=== PATIENT | female | born 1955 | race Caucasian/White ===

== ENCOUNTER 2016-06-29 10:23 | Emergency (ER) | payer BC, OTHER ==
[2016-06-29 10:39] VITALS: RESP 16
--- NOTE | 2016-06-29 12:06 | EDPHY ---
H & P Smoking Status: Heavy smoker Time Seen by Provider: 06/29/16 11:50 HPI/ROS: HPI: 52-year-old female presents to emergency department with chief concern right wrist pain, swelling, deformity. Occurred at 9:55 a.m. when she fell off of a trash can she was standing on at work at [employer] with outstretched right hand. Did not incur other injury. Did not strike her head. No neck or back pain. No right shoulder, right elbow pain. No weakness, numbness, or tingling of the right upper extremity. Current daily smoker. ROS:10 point review of systems is negative other than as stated in HPI (Cherry Welch) Physical Exam: Vital signs reviewed by me General: Awake, alert, calm, cooperative. No acute distress. Head: Normalocephalic. Atraumatic. EENT: PERRLA. EOMI. Neck: Supple, nontender. No midline tenderness, full ROM. Respiratory: Breathing unlabored. CV: Chest nontender, atraumatic. Distal pulses 2+. Brisk cap refill all extremities. GI: Deferred Neuro: Alert. Oriented x 3. Sensation intact all extremities. Skin: Skin warm, dry, intact. No ecchymosis, abrasions, or lacerations. Extremities: No discomfort to palpation of the right shoulder, elbow. Full ROM. Deformity, swelling, pain right distal forearm. Decreased range of motion. Cap refill intact. Sensation intact. (Cherry Welch) Constitutional: Initial Vital Signs Temperature (C) 36.4 C 06/29/16 10:36 Heart Rate 74 06/29/16 10:36 Respiratory Rate 16 06/29/16 10:36 Blood Pressure 166/101 H 06/29/16 10:36 O2 Sat (%) 93 06/29/16 10:36 O2 Delivery Mode Room Air Allergies/Adverse Reactions: epinephrine Allergy (Verified 04/09/13 12:26) fentanyl Allergy (Verified 04/09/13 12:26) Home Medications: Medication Instructions Recorded Buprenorphine [Butrans] 04/09/13 Losartan-Hctz 100-25 mg Tab 04/09/13 Percocet 5/325 (RX) 04/09/13 oxyCODONE/APAP 5/325 [Percocet 1 - 2 tab PO Q6H PRN #20 tab 06/29/16 5/325 (*)] Medical Decision Making - Diagnostics Imaging Results: Imaging Impressions Wrist X-Ray 06/29/16 11:02 Impression: 1. Dorsally angulated Colles' fracture. 2. Wide pisiform triquetral joint. If there is concern for acute pisiform malalignment, then consider CT. Wrist X-Ray 06/29/16 13:10 Impression: Improved alignment, with persistent mild dorsal angulation. Procedures: Procedure: Fracture reduction. Indication: Displaced distal radius fracture. Risks, benefits, alternatives discussed with the patient. Consent was obtained. The right wrist was anesthetized using a hematoma block with 10 mL of 1% lidocaine without epinephrine mixed with 0.5% bupivacaine without epinephrine and was reduced using a combination of traction and manual manipulation without complications. The patient has a normal neurovascular exam distal to the injury post reduction. Patient tolerated the procedure well and is significantly more comfortable. Post reduction x-ray demonstrates reduction of the joint to the anatomic position. The procedure was performed by myself. A reverse sugar-tong Ortho Glass splint was applied. After application of the splint, I returned and re-examined the patient. The splint was adequately immobilizing the joint. The patients circulation and sensation were intact distal to the splint. (Delmi Malhotra) ED Course/Re-evaluation: Patient sustained a right Colles fracture and right ulnar styloid fracture. Successful reduction by Delmi Malhotra np. placed in a reverse sugar-tong- neurovascular status intact after application, repeat x-ray shows a reduced Colles fracture, patient given follow-up with Occup[facility] and on-call ortho Dr. Manuel (Cherry Welch) - Data Points Medications Given: Discontinued Medications Hydrocodone Bitart/Acetaminophen (Randolph 5/325) 1 tab PO EDNOW ONE Stop: 06/29/16 12:31 Last Admin: 06/29/16 12:35 Dose: 1 tab Departure - Departure Disposition: Home, Routine, Self-Care Clinical Impression: Colles' fracture Qualifiers: Encounter type: initial encounter Fracture type: closed Laterality: right Qualified Code(s): S52.531A - Colles' fracture of right radius, initial encounter for closed fracture Fracture of ulnar styloid Qualifiers: Encounter type: initial encounter Fracture type: closed Fracture alignment: displaced Laterality: right Qualified Code(s): S52.611A - Displaced fracture of right ulna styloid process, initial encounter for closed fracture Condition: Good Instructions: Wrist Fracture in Adults (ED) Additional Instructions: Plan: 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 Manuel of [facility] as he is on-call, or if there is another orthopedist who would like you to see, his information is below, you need to be seen by Thursday or Thursday You may use 600 mg of ibuprofen every 6 hours for fever, inflammation, or pain. Always take ibuprofen with food and stay well hydrated while taking. Do not exceed the maximum allowable dose in a 24 hour period which is 2400 mg. ice every 1-2 hours for 20 minutes for the the next 2-3 days 1-2 Percocet every 6 hours as needed for severe pain--Never drink or drive while taking this medication. This medication impairs decision making capacity so do not work or sign important documents while taking. This medication its constipating so drink plenty of fluids and consider an [id number] stool softener such as docusate sodium (Colace) while taking this medication. This medication has addictive properties. You should use the least amount for the shortest amount of time. [facility] do not refill narcotic pain medication prescriptions. This is a hospital policy. You will need to follow up as indicated for recheck for further narcotic refills. You may not drive while taking Percocet Keep splint dry, wear sling while up and about Follow up with Dr. Manuel Thursday or Thursday--When you call to schedule appointment , please let the office know you are an "ER follow up" appointment" Return promptly to emergency department if he developed severe unremitting pain , cool, dusky fingers, or other concerning symptoms Referrals: NONE *PRIMARY CARE P,. [Primary Care Provider] - As per Instructions Christa Manuel MD [Medical Doctor] - As per Instructions Stand Alone Forms: Work Comp Follow Up Prescriptions: oxyCODONE/APAP 5/325 [Percocet 5/325 (*)] 1 - 2 tab PO Q6H PRN #20 tab PRN Reason: Pain, Severe
[2016-06-29] MEDS ORDERED: HYDROCODONE/APAP 5/325 TAB ONE (12:24)
[2016-06-29] MEDS ORDERED: HYDROCODONE/APAP 5/325 TAB PO ONE (12:30)
[2016-06-29 13:27] VITALS: TEMP 97.9
[2016-06-29 13:57] VITALS: BP 136/109; PULSE 73; O2SAT 94
== END 2016-06-29 13:54 | disposition home or self-care (01) ==
PROC: 0PSHXZZ Reposition Right Radius, External Approach (ICD-10-PCS; principal; 2016-06-29)
DX: S52.531A Colles' fracture of right radius, initial encounter for closed fracture (principal); S52.611A Displaced fracture of right ulna styloid process, initial encounter for closed fracture; F17.200 Nicotine dependence, unspecified, uncomplicated; W19.XXXA Unspecified fall, initial encounter; Y92.69 Other specified industrial and construction area as the place of occurrence of the external cause; Y99.0 Civilian activity done for income or pay; Y93.89 Activity, other specified

== ENCOUNTER 2016-07-08 08:03 | Day surgery (SDC) | payer OTHER ==
[2016-07-08] MEDS ORDERED: BUPIVACAINE 0.5% 30 ML SDV ONE (08:55)
[2016-07-08] MEDS ORDERED: PROPOFOL 200 MG/20 ML VIAL ONE (08:56)
[2016-07-08] MEDS ORDERED: DEXAMETHASONE 4 MG/ML VIAL ONE (08:56)
[2016-07-08] MEDS ORDERED: fentaNYL 100 MCG/2 ML INJ ONE (08:56)
[2016-07-08] MEDS ORDERED: LIDOCAINE 2% 100 MG/5 ML SYR ONE (08:56)
[2016-07-08] MEDS ORDERED: ONDANSETRON 4 MG/2 ML VIAL ONE (08:56)
[2016-07-08] MEDS ORDERED: MIDAZOLAM 2 MG/2 ML VIAL ONE (09:48)
[2016-07-08] MEDS ORDERED: CEFAZOLIN 2 GM/DEXTROSE/100 ML BAG IV ONE (09:48)
[2016-07-08] MEDS ORDERED: HYDROmorphONE/DILAUDID 2 MG/ML INJ ONE (09:57)
[2016-07-08] MEDS ORDERED: ESMOLOL HCL 100 MG/10 ML VIAL IV ONE (10:18)
[2016-07-08] MEDS ORDERED: hydrALAZINE 20 MG/ML VIAL ONE (10:38)
[2016-07-08] MEDS ORDERED: ceFAZolin 2 GM/DEXTROSE 100 ML IV ONE (11:00)
[2016-07-08] MEDS ORDERED: HYDROmorphONE/DILAUDID 1 MG/ML SYR ONE ×2 (12:31→13:29)
[2016-07-08] MEDS ORDERED: LABETALOL HCL 50 MG/10 ML SYR ONE (12:43)
[2016-07-08] MEDS ORDERED: OXYCODONE/APAP 5/325 TAB ONE ×2 (13:18→17:03)
--- NOTE | 2016-07-08 13:27 | GOP ---
[f rep st] OPERATIVE REPORT DATE OF OPERATION: 07/08/2016 SURGEON: Christa Manuel MD DEICER INSPECTOR PNEUMATIC: Armond Cancino, certified P.A., whose presence was medically necessary. ANESTHESIA: By LMA. PREOPERATIVE DIAGNOSIS: Right distal radius fracture. POSTOPERATIVE DIAGNOSIS: Right distal radius fracture. PROCEDURE PERFORMED: 1. Open reduction, internal fixation of right distal radius with fluoroscopy. 2. Carpal tunnel release. FINDINGS: INDICATIONS: This is a 60-year-old female who fell on an outstretched hand and had pain and deformi ty. She was seen in the emergency room where she had a provisional reduction. However, the reducti on was not anatomic and she appears to have some dorsal comminution and intra-articular extension. It was therefore decided to take her to surgery for fixation. DESCRIPTION OF PROCEDURE: The patient was brought to the operating room and after the right side moy d been identified as the correct side by the patient, nurse and physician once in the operating room , she was placed under anesthesia using an LMA. Once asleep, a tourniquet was placed around the upp er portion of the right arm. The right upper extremity was sterilely prepped and draped in the usua l fashion using GSI solution. Once prepped and draped, the limb was exsanguinated and the tournique t was inflated to 250 mmHg. A linear incision was made starting at the thenar crease just distal to the distal volar crease of t he wrist and extending proximally by approximately 8 cm. Sharp dissection was carried down through the skin and subcutaneous layers, with bleeding controlled using electrocautery. A carpal tunnel re lease was performed in order to gain adequate access to the distal radius, and blunt dissection was performed in order to gain access to the volar portion of the distal radius with the flexor tendons and median nerve retracted laterally, with the radial artery being retracted radially. The perioste um had been stripped from around the area of the fracture site. Deeper dissection was down at the r adial carpal joint, which was opened. She was noted to have some mild comminution, but no intra-art icular step off. Therefore, the wrist was able to be reduced. It was checked on fluoroscopy and no bridget to be in proper position. Therefore, a 3-hole skeletal dynamic plate was put into place with di stal screws. Cortical screw was placed first in order to reduce the bone onto the plate itself, the n locking screws were placed in the distal and lengths were checked using fluoroscopy. The proximal portion of the plate was then reduced onto the both using an offset bicortical screw. Once in plac e, 2 locking screws were put into place and the lengths were again checked using fluoroscopy. Once the screw lengths were noted to be appropriate, the tourniquet was released at 80 minutes. Any bleeding was controlled using electrocautery again. The wound was closed in layers, including 2-0 Vicryl suture for the subcutaneous layers and a 4-0 Monocryl suture used in a running subcuticular s titch for the skin. The wound was dressed with Steri-Strips, Xeroform, 4x4s, wrapped in Webril. Th e tourniquet was removed from the arm and a dorsal and volar splint were put into place wrapped in a n Timo wrap. Once the splint had hardened, she was woken up, extubated, transferred onto a stretcher , and sent to the recovery room in good condition. TOURNIQUET TIME: Was 80 minutes. /[id number]/MODL
[2016-07-08 14:52] VITALS: BP 140/80; RESP 16; O2SAT 96
== END 2016-07-08 17:48 | disposition home or self-care (01) ==
LOC: FSGY 08:03
PROVIDERS: ATTEND Orthopaedic Surgery
PROC: 0PSH04Z Reposition Right Radius with Internal Fixation Device, Open Approach (ICD-10-PCS; principal; 2016-07-08 10:15)
PROC: 01S50ZZ Reposition Median Nerve, Open Approach (ICD-10-PCS; principal; 2016-07-08 10:15)
DX: S52.501A Unspecified fracture of the lower end of right radius, initial encounter for closed fracture (principal); W19.XXXA Unspecified fall, initial encounter; I10 Essential (primary) hypertension; Z85.42 Personal history of malignant neoplasm of other parts of uterus; Z88.5 Allergy status to narcotic agent
CPT/HCPCS: 25607; 64721; C1769; C1713; J0360; J0690; J1100; J1170; J1200; J2001; J2250; J2405; J2704; J3010